=== PATIENT | male | born 1990 | race Caucasian/White ===

== ENCOUNTER 2019-01-14 11:58 | Emergency (ER) | payer OTHER ==
[2019-01-14 12:39] LABS: CHLORIDE,CL 105 mmol/L (98-107); SODIUM,NA 142 mmol/L (136-145)
--- NOTE | 2019-01-14 13:45 | EDM.PDOC ---
ED HPI GENERAL MEDICAL PROBLEM - General Chief Complaint: Headache Stated Complaint: headache Time Seen by Provider: 01/14/19 12:07 Source of Information: Reports: Patient, Other (significant other) History Limitations: Reports: No Limitations - History of Present Illness INITIAL COMMENTS - FREE TEXT/NARRATIVE: Patient comes to ER complaining of having headache for 5 days. States that he was told that if he has a headache for 5 days that he is supposed to be evaluated due to fact that surgical removal of a pituitary adenoma was performed Nov 27 at [place]. Headache has usually been posterior, and pain continues down into neck area. Pain is worsened by head rotation and pressure over back of neck muscles. Improves when laying down and resting. Denies fevers/chills Denies obvious other signs of acute illness/viral infections other than admitting to loose stools for 4-5 days. Insists that the headache is from his pituitary adenoma issues and emphatically denies that he has a virus when being interviewed. No vision changes/hearing changes. No sore throat/sinus complaints. Denies respiratory changes/cough/SOB, no chest pain or palpitation. Is eating and drinking well. No abdominal pain or back pain. No limb pain/changes. Denies UTI complaints. No focal neuro changes/weakness. Tylenol/ibuprofen not helping. 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 Other Oncologic History: pituitary adenoma - Past Surgical History Other Surgical History Comment: Pituitary adenoma removal Social & Family History - Tobacco Use Smoking Status *Q: Current Every Day Smoker Years of Tobacco use: 20 Packs/Tins Daily: 0.2 Used Tobacco, but Quit: No Smoking Cessation Information Provided To Patient: Yes Second Hand Smoke Exposure: No - Caffeine Use Caffeine Use: Reports: Coffee - Alcohol Use Alcohol Use History: No - Recreational Drug Use Recreational Drug Use: Yes Drug Use in Last 12 Months: Yes Recreational Drug Type: Reports: Marijuana/Hashish ED ROS GENERAL - Review of Systems Review Of Systems: ROS reveals no pertinent complaints other than HPI. - Physical Exam Exam: See Below Exam Limited By: No Limitations General Appearance: Alert, WD/WN, No Apparent Distress Eye Exam: Bilateral Eye: EOMI, PERRL Ears: Normal External Exam, Normal Canal Nose: No: Nasal Deformity, Nasal Swelling, Nasal Drainage Throat/Mouth: Normal Lips, Normal Voice, No Airway Compromise Head Exam: Atraumatic, Normocephalic, Scalp Tenderness (posterior scalp tender with palpation, reproduces pain complaint (bilateral), continues down posterior neck muscles.). No: Facial Tenderness, Sinus Tenderness Neck: Supple, Full Range of Motion, Tender Lateral (bilateral posterior neck soft tissue tenderness. SCM muscles overall nontender). No: Lymphadenopathy (L ), Lymphadenopathy (R), Tender Midline Respiratory/Chest: No Respiratory Distress Cardiovascular: Regular Rate, Rhythm (Male) Exam: Deferred Rectal (Males) Exam: Deferred Neuro Exam (Abbreviated): Alert, Oriented, CN II-XII Intact, Normal Cognition, Normal Gait, No Motor/Sensory Deficits Back Exam: No: Paraspinal Tenderness, Vertebral Tenderness Extremities: Normal Inspection, Normal Range of Motion, Non-Tender, Normal Capillary Refill Psychiatric: Other (slightly cranky at times, otherwise normal affect/mood) Skin Exam: Warm, Dry, Intact, Normal Color Course - Vital Signs Last Recorded V/S: Last Vital Signs Temp 36.4 C 01/14/19 12:32 Pulse 66 01/14/19 12:32 Resp 20 01/14/19 12:32 BP 124/76 01/14/19 12:32 Pulse Ox 100 01/14/19 12:32 - Orders/Labs/Meds Orders: Active Orders 24 hr Category Date Time Status Head wo Cont [CT] Stat Exams 01/14/19 12:08 Taken Labs: Laboratory Tests 01/14/19 01/14/19 01/14/19 Range/Units 12:20 12:20 13:23 WBC 9.4 (4.0-10.2) K/uL RBC 4.38 (4.33-5.41) M/uL Hgb 12.5 L (13.1-16.8) g/dL Hct 36.7 L (39.0-49.0) % MCV 83.8 L (84.0-98.0) fL MCH 28.5 (28.2-33.3) pg MCHC 34.1 (31.7-36.0) g/dL RDW 14.8 H (11.2-14.1) % Plt Count 260 (150-350) K/uL Neut % (Auto) 67.7 (45.0-80.0) % Lymph % (Auto) 26.2 (10.0-50.0) % Ware % (Auto) 5.7 (2.0-14.0) % Eos % (Auto) 0.1 (0.0-5.0) % Baso % (Auto) 0.3 (0.0-2.0) % Neut # (Auto) 6.37 (1.40-7.00) K/uL Lymph # (Auto) 2.47 (0.50-3.50) K/uL Ware # (Auto) 0.54 (0.00-1.00) K/uL Eos # (Auto) 0.01 (0.00-0.50) K/uL Baso # (Auto) 0.03 (0.00-0.20) K/uL Sodium 142 (136-145) mmol/L Potassium 3.9 (3.5-5.1) mmol/L Chloride 105 (98-107) mmol/L Carbon Dioxide 27.8 (21.0-32.0) mmol/L BUN 15 (7-18) mg/dL Creatinine 0.86 (0.51-1.17) mg/dL Est Cr Clr Drug Dosing 116.43 mL/min Estimated GFR (MDRD) > 60 mL/min Glucose 91 (74-106) mg/dL Calcium 9.1 (8.5-10.1) mg/dL Magnesium 2.1 (1.8-2.4) mg/dL Total Bilirubin 0.4 (0.2-1.0) mg/dL AST 16 (15-37) U/L ALT 20 (12-78) U/L Alkaline Phosphatase 77 (46-116) IU/L Total Protein 7.5 (6.4-8.2) g/dL Albumin 4.5 (3.4-5.0) g/dL Specimen Type Urinblad Urine Color Yellow Urine Appearance Clear Urine pH 7.0 (5.0-9.0) Ur Specific [place] 1.020 (1.005-1.030) Urine Protein Negative (NEGATIVE) mg/dL Urine Glucose (UA) Negative (NEGATIVE) mg/dL Urine Ketones Negative (NEGATIVE) mg/dL Urine Occult Blood Negative (NEGATIVE) Urine Nitrite Negative (NEGATIVE) Urine Bilirubin Negative (NEGATIVE) Urine Urobilinogen 0.2 (0.2-1.0) E.U./dL Ur Leukocyte Esterase Negative (NEGATIVE) Urine RBC 0-5 /HPF Urine WBC 0-5 /HPF Ur Epithelial Cells Rare /LPF Urine Bacteria Not seen (NONE TO FEW) /HPF - Re-Assessments/Exams Free Text/Narrative Re-Assessment/Exam: CT of head negative for acute changes. Area of pituitary continues to show decrease of tissue since having the November surgery. CBC/Chem/UA overall unremarkable. Slight decrease in hgb. Suspect soft tissue etiology/musculoskeletal tension headache given soreness noted during P.E. that reproduces symptoms. Call placed to [facility] and discussed patient with . noted that patient failed to keep follow up post-surgical appointment ( patient says he did not have a ride to [place] that day and no-showed) . also felt that the appropriate evaluation had been performed and no additional testing recommended. He does not feel that any acute intracranial process is likely contributing to current headache complaint. Plan at this time is to have patient follow up with Neurosurgery. Patient declined pain medication and did not want any prescription medication for pain. He voiced that he was happy to know that CT showed no worsening of the adenoma. Precautions reviewed. To follow up if pain worsens/neuro changes are noticed. Self massage of neck muscles using tennis balls encouraged to see if that might help muscle pain. Patient in agreement with above plan. Departure - Departure Time of Disposition: 13:44 Disposition: Home, Self-Care 01 Condition: Good Clinical Impression: Tension-type headache - Discharge Information *PRESCRIPTION DRUG MONITORING PROGRAM REVIEWED*: Not Applicable *COPY OF PRESCRIPTION DRUG MONITORING REPORT IN PATIENT RAHUL: Not Applicable Instructions: Tension Headache, Adult, [id number], General Headache Without Cause, [id number] Referrals: PCP,None [Primary Care Provider] - Forms: ED Department Discharge Additional Instructions: Observe for changes, follow up as needed if there are new concerns. Make follow up appointment for Neurosurgery!!! - My Orders Last 24 Hours: My Active Orders 01/14/19 12:08 Head wo Cont [CT] Stat - Assessment/Plan Last 24 Hours: My Active Orders 01/14/19 12:08 Head wo Cont [CT] Stat
== END 2019-01-14 14:00 | disposition home or self-care (01) ==
LOC: LL.ED 11:58
DX: G44.209 Tension-type headache, unspecified, not intractable (principal); F17.210 Nicotine dependence, cigarettes, uncomplicated
CPT/HCPCS: 36415; 70450; 80053; 81001; 83735; 85025; 99284-25